=== PATIENT | male | born 1945 | race Caucasian/White ===

== ENCOUNTER 2022-01-18 12:18 | Inpatient (IN) | payer MEDICARE ==
[~2022-01-18] VITALS: Ht 180.3 cm; Wt 87.8 kg
--- NOTE | 2022-01-18 19:31 | NUR ---
CALL TO HOSPITALIST TROPONION SLIGHTLY ELEVATED FROM PREVIOUS 219, IS NOW 255. PT COMPLAINS OF CHEST PAIN, UNCHANGED IN PRESENTATION FROM ARRIVAL TO THE EMERGECNY ROOM OTHER THAN TO BE LESS IN SEVERITY AT THIS TIME (5-01/03) COMPARED TO -05/05 IN ER. PT DENIES STABBING, SQUEEZING, OR PRESSURE DESCRIPTORS OF THE PAIN. DENIES THE PAIN RADIATING BEYOND THE POINT OF DISCOMFORT IN THE LOWER RIGHT TO MID CHEST. REPORTS THAT IT IS WORSE WITH DEEP INSPIRATION. PT REPORTS THAT NITROPASTE PROVIDED SIGNIFICANT RELIEF. PER RN SHIFT REPORT, NITROPASTE WAS REMOVED IN ER. REQUEST FOR RESUMPTION OF NITROPASTE AND WILL MONITOR BLOOD PRESSURE PER PROTOCOL. ORDER RECEIVED.
--- NOTE | 2022-01-18 19:40 | NUR ---
CALL RECEIVED FROM LAB WITH CRITICAL VALUE FOR TROPONIN DRAWN AT 16:54 = 254. MD NOT NOTIFIED DUE TO RECENT NOTIFICATION TO MD OF TROPONIN DRAWN AT 18:05 = 255.
[2022-01-19 04:35] LABS: Bun/Creatinine Ratio 23.5 (12.0-20.0); Calcium, Blood 8.6 mg/dL (8.5-10.1); Creatinine, Blood 0.81 mg/dL (0.60-1.20); Potassium, Blood 3.7 mmol/L (3.5-5.5)
--- NOTE | 2022-01-19 06:35 | NUR ---
AT SHIFT MECHANICAL ENGINEERING DIRECTOR PT COMPLAINED OF CHEST PAIN TO THE RIGHT/MID CHEST AREA THAT WAS WORSE WITH DEEP INSPIRATION. INITIALLY, HE HAD MINIMAL RELIEF WITH APPLICATION OF NITROPASTE BUT DID REPORT RESOLUTION OF PAIN WITH ADMINISTRATION OF DILAUDID AND TYLENOL. PT WAS ABLE TO REST COMFORTABLY AND HAD NO COMPLAINTS OF PAIN WITH 0400 VITAL SIGNS. OBSERVED PT TO BE TACHYPNEIC AT REST AND DYSPNEIC WITH EXERTION. 2+ BILATERAL LOWER EXTREMITY EDEMA FROM MID-CALF TO ANKLES AND INTO PEDALS. SKIN IS TIGHT AND PITTING.
[2022-01-19 07:27] LABS: Mean Corpuscular HGB 32.4 pg (26.0-34.0); Mean Corpuscular HGB Conc 32.4 g/dL (31.5-36.5); Mean Corpuscular Volume 100 fL (80-100); Mean Platelet Volume 10.7 fL (9.1-12.4); Platelet Count 162 K/mm3 (150-400); RDW Coefficient Variation 13.3 % (11.7-14.2); White Blood Cell Count 8.56 K/mm3 (4.00-11.30)
[2022-01-19 07:40] LABS: CHOL/HDL RATIO 2.8; Cholesterol 121 mg/dL (50-200); HDL Cholesterol 44 mg/dL (>39); LDL/HDL RATIO 1.5; Low Density Lipoprotein Chol 65 mg/dL (0-110); Magnesium, Blood 2.4 mg/dL (1.6-2.4); Triglycerides 61 mg/dL (30-160); Very Low Density Lipoprot Chol 12 mg/dL (6-32)
[2022-01-19 09:17] LABS: SARS-Cov-2 (COVID-19) PCR, MMC NEGATIVE (NEGATIVE)
--- NOTE | 2022-01-19 10:30 | NUR ---
UPDATE PT RETURNED FROM [facility] ALERT AND ORIENTED. RIGHT RADIAL ACCESS, TR BAND IS IN PLACE, 10CC OF AIR PER REPORT. DISTAL PULSES ARE PRESENT AND EQUAL. PT DENIES PAIN/TENDERNESS AT SITE, NO HEMATOMA NOTED.
--- NOTE | 2022-01-19 17:58 | NUR ---
SHIFT SUMMARY PT HAS EXPRESSED SOME ANXIETY OVER THE PENDING PROCEDURE. THIS RN PROVIDED EDUCATION THROUGHOUT THE DAY THAT APPEARED TO ONLY MILDLY RELIEVE THEIR ANXIETY. PT AMBULATED TO RESTROOM INDEPENDENTLY ON MORE THAN ONE OCCASION. RADIAL SITE IS CLEAN, DRY, INTACT, NO EVIDENCE OF HEMATOMA, PT DENIES PARESTHESIA, DISTAL PULSES ARE PRESENT AND EQUAL. PT SEEMS TO BE IN GOOD SPIRITS DESPITE ANXIETY. SBP HAS PERSISTED AROUND 100 mm Hg. PT DENIED CHEST PAIN SINCE RETURNING FROM [facility]ART CENTER. THERE HAVE BEEN NO ACUTE CHANGES TO CURRENT CONDITION.
[2022-01-20 03:59] LABS: Hematocrit 35.4 % (37.0-53.0); Hemoglobin 11.6 g/dL (13.5-17.5); Mean Corpuscular HGB 32.7 pg (26.0-34.0); Mean Corpuscular HGB Conc 32.8 g/dL (31.5-36.5); Mean Corpuscular Volume 100 fL (80-100); Mean Platelet Volume 10.1 fL (9.1-12.4); Platelet Count 159 K/mm3 (150-400); RDW Coefficient Variation 12.8 % (11.7-14.2); RDW Standard Deviation 47.5 fL (35.1-46.3); Red Blood Cell Count 3.55 M/mm3 (4.30-5.90); White Blood Cell Count 6.95 K/mm3 (4.00-11.30)
[2022-01-20 04:19] LABS: Bun/Creatinine Ratio 29.2 (12.0-20.0); Calcium, Blood 8.7 mg/dL (8.5-10.1); Creatinine, Blood 0.82 mg/dL (0.60-1.20); Magnesium, Blood 2.1 mg/dL (1.6-2.4); Potassium, Blood 3.8 mmol/L (3.5-5.5)
--- NOTE | 2022-01-20 06:41 | NUR ---
NO ACUTE EVENTS OVERNIGHT. MR. MISHRA WAS ABLE TO REST COMFORTABLY THROUGHOUT THE NIGHT. NO COMPLAINTS OF CHEST PAIN OR SHORTNESS OF BREATH, WITH THE EXCEPTION OF SOME CHEST PAIN RATED 2/10 WITH AMBULATION TO/FROM THE BATHROOM. PT REPORTS THAT THE CHEST PAIN RESOLVED QUICKLY WITH REST. VITAL SIGNS REMAIN STABLE, BILATERAL LOWER EXTREMITY IS DECREASED FROM PREVIOUS DAY. EDUCATION PROVIDED ON WHAT TO EXPECT WITH CORONARY ARTERY BYPASS SURGERY AND THE RECOVERY PROCESS. MR. MISHRA IS IN GOOD SPIRITS AND TRUSTS THAT SURGERY IS THE BEST OPTION FOR HIM AT THIS TIME.
--- NOTE | 2022-01-20 09:21 | NUR ---
AM NOTE: PATIENT ALERT AND ORIENTED X4. NEURO WNL. STATES HE HAS CHRONIC BILAT FEET NUMBNESS/TINGLING. UP IND TO BATHROOM. ON ROOM AIR SATING ABOVE 90%. DENIES SOB AT THIS TIME. OCCASIONAL SOB WHEN UP MOVING. TELE SHOWING SINUS RHYTHM WITH PVC'S. HR 70-80'S. DENIES CHEST PAIN/PRESSURE. BP STABLE. MORN MEDS GIVEN. S/P ANGIO, RIGHT RADIAL SITE WNL. ARM BOARD IN PLACE. DENIES ABDOMINAL PAIN/NAUSEA. EATING WELL. FLUID RESTRICTION OF 1500 ML MAINTAINED. USING URINAL TO VOID/UP TO BATHROOM. DENIES NEEDS AT THIS TIME. PLAN FOR TRANSFER TO [facility] THIS AM/AFTERNOON. CALL LIGHT IN REACH.
--- NOTE | 2022-01-20 09:57 | NUR ---
ECHO BEING DONE AT THIS TIME. IMAGES WILL BE PUSHED TO [facility] AFTER. TRANSPORT SET UP FOR 1030 AM. REPORT CALLED TO [phone]. REPORTED OFF TO RN.
--- NOTE | 2022-01-20 10:26 | NUR ---
Echocardiogram completed.
--- NOTE | 2022-01-20 10:47 | NUR ---
TRANSFER IN TO MISSILE P[employer] MECHANIC PATIENT. REPORTED OFF. NO ACUTE CHANGES AT THIS TIME. REMOVED FROM TELE. IV REMAINS IN PLACE. PATIENT LEFT UNIT VIA EMS WITH ALL PERSONAL BELONGINGS.
== END 2022-01-20 10:46 | disposition short-term general hospital (02) | DRG 280 ==
LOC: ER 12:18 → PCU 17:31
PROVIDERS: Internal Medicine Cardiovascular Disease; ADMIT Internal Medicine
PROC: 4A023N7 Measurement of Cardiac Sampling and Pressure, Left Heart, Percutaneous Approach (ICD-10-PCS; principal; 2022-01-19)
PROC: B2111ZZ Fluoroscopy of Multiple Coronary Arteries using Low Osmolar Contrast (ICD-10-PCS; 2022-01-19)
PROC: B2151ZZ Fluoroscopy of Left Heart using Low Osmolar Contrast (ICD-10-PCS; 2022-01-19)
DX: I21.4 Non-ST elevation (NSTEMI) myocardial infarction (principal); I50.21 Acute systolic (congestive) heart failure; R77.8 Other specified abnormalities of plasma proteins; Z20.822 Contact with and (suspected) exposure to COVID-19; I25.110 Atherosclerotic heart disease of native coronary artery with unstable angina pectoris; I25.2 Old myocardial infarction; Z87.891 Personal history of nicotine dependence
CPT/HCPCS: 36415; 71260; 80048; 80061; 83735; 83880; 84484; 85027; 93005; 93010; 93306; 93458; 93880; 96372; 99152; 99153; 99285-25; A9270; C1769; C1894; J1170; J1644; J1650; J1940; J2250; J3010; J7030; J7040; Q9967; U0004

== ENCOUNTER → 2023-03-07 | Outpatient (CLI) | payer MEDICARE | END | disposition home or self-care (01) | LOC: LAB 10:00 | DX: Z11.59 Encounter for screening for other viral diseases (principal); E78.2 Mixed hyperlipidemia; I10 Essential (primary) hypertension; R73.01 Impaired fasting glucose ==